=== PATIENT | male | born 1960 | race Caucasian/White ===

== ENCOUNTER → 2023-10-15 07:02 | Outpatient (REF) | payer BC, SELFPAY ==
[2023-10-15 09:45] LABS: ALT (SGPT) 42 U/L (0-50); AST (SGOT) 40 U/L (17-59); Albumin 4.4 g/dl (3.5-5.0); Alkaline Phosphatase 68 U/L (38-126); Blood Urea Nitrogen 21 mg/dl (9-20); Calcium 9.4 mg/dl (8.4-10.2); Carbon Dioxide 26 mmol/L (22-30); Chloride 105 mmol/L (98-107); Glucose 112 mg/dl (70-99); HDL Cholesterol 47 mg/dl; LDL Cholesterol, Calculated 126 mg/dl; Potassium 4.3 mmol/L (3.5-5.1); Sodium 137 mmol/L (135-145); Total Bilirubin 1.2 mg/dl (0.2-1.3); Total Cholesterol 212 mg/dl (50-199); Total Protein 7.3 g/dl (6.3-8.2); Triglyceride 195 mg/dl (10-149); Very Low Density Lipoprotein 39 mg/dl (0-30); eGFR > 60.00
[2023-10-15 10:02] LABS: Free T4 0.82 ng/dl (0.78-2.19)
[2023-10-15 10:15] LABS: TSH 4.04 uIU/ml (0.47-4.68)
[2023-10-15 10:54] LABS: Glycohemoglobin (HgbA1c) 5.6 % (4.0-5.6)
[2023-10-17 22:49] LABS: Anti-Xa Qualitative Interp Not Performed (Not Present); Anticoagulant Med Neutralizati Not Performed (Not Performed); Hexagonal Phospholipid Confirm Not Performed s (<=7.9); Neutralized PTT-LA Ratio Not Performed (<=1.20); Neutralized dRVTT Screen Ratio Not Performed (<=1.20); PTT-LA Ratio 0.94 (<=1.20); Prothrombin Time 13.7 s (12.0-15.5); Thrombin Time Not Performed s (<=19.5); dRVTT 1.1 Mix Ratio Not Performed (<=1.20); dRVTT Confirmation Ratio Not Performed (<=1.20); dRVTT Screen Ratio 0.99 (<=1.20)
[2023-10-21 03:28] LABS: Beta-2-Glycoprotein I Ab. IgG <10 SGU (<=20); Beta-2-Glycoprotein I Ab. IgM <10 SMU (<=20)
[2023-10-21 09:55] LABS: Cardiolipin IgA Antibody <10 APL (<=11); Cardiolipin IgM Antibody <10 MPL (<=12); Cardiolipin Igg Antibody <10 GPL (<=14)
== END ==
LOC: HWLAB 07:02
PROVIDERS: ATTENDING PHYSICIAN Physician Assistant Medical
DX: Z86.718 Personal history of other venous thrombosis and embolism (principal); Z82.49 Family history of ischemic heart disease and other diseases of the circulatory system; E78.2 Mixed hyperlipidemia; E03.9 Hypothyroidism, unspecified; R73.9 Hyperglycemia, unspecified; Z68.32 Body mass index [BMI] 32.0-32.9, adult
CPT/HCPCS: 36415; 80053; 80061; 83036; 84439; 84443; 85610; 85613; 85730; 86146; 86147

== ENCOUNTER 2024-08-02 17:01 | Emergency (ER) | payer BC, SELFPAY ==
[2024-08-02 17:05] VITALS: BP 126/77
[2024-08-02 18:38] VITALS: BMI 31.0
--- NOTE | 2024-08-02 18:48 | ED.GENMED ---
History of Present Illness
General
Chief Complaint: DVT/Possible Blood Clot
Source: patient
Exam Limitations: none
Time Seen by Provider: 08/02/24 17:41
Nursing documentation reviewed up to this point in time: agreed with
History of Present Illness
History of Present Illness:
63-year-old male presenting to the emergency department today with concerns of a red streak to his left thigh over the past few days. Concerned this could be DVT as he has had 1 in the past. Denies additional symptoms no chest pain shortness of
breath no recent trauma surgery or immobilization
Past History
Past History
ED Past Medical History: Hypothyroidism and Other (Lupus)
ED Past Surgical History: None
Social History
Tobacco: Non-smoker
Alcohol: Occasional
Personal:
Living: with family
Employment: Employed
Review of Systems
Review of Systems
Allergies reviewed?: Yes
All Other Systems: ROS reviewed and negative except as documented in HPI and ROS
Phy Exam
Physical Exam
Physical Exam:
GENERAL: Alert , in no apparent distress
EYE: pupils equal and reactive
NECK: Supple, no significant adenopathy.
ENT: o/p clr, mmm.
CARDIAC: Regular rate and rhythm .
LUNGS: Clear breath sounds bilaterally, no acute respiratory distress, no wheezes/rales/rhonchi
ABDOMEN: Soft, without focal tenderness, no r/g, no cvat
NEUROLOGICAL: Alert and oriented, no focal neuro deficits
SKIN: Faint red streak to the left anterior thigh no tenderness normal distal skin examination and pulses. Warm and dry, skin intact.
MUSCULOSKELETAL: No edema, well perfused.
PSYCH: Normal and appropriate interaction.
Course
Orders/Labs/Results
Orders:
Orders
08/02/24 17:23
Periph Venous Lwr Ext Left US [US Periph Venous LOWER Ext LT] Urgent
Comment:
Reason For Exam: pain, swelling
Vital Signs
Initial and Last Documented VS:
Initial Vital Signs
Temp Pulse Resp BP Pulse Ox
97.7 F 71 16 126/77 98
08/02/24 17:05 08/02/24 17:05 08/02/24 17:05 08/02/24 17:05 08/02/24 17:05
Last Documented Vital Signs
Temp Pulse Resp BP Pulse Ox
97.7 F 71 16 126/77 98
08/02/24 17:05 08/02/24 17:05 08/02/24 17:05 08/02/24 17:05 08/02/24 17:05
MDM/Problems Addressed
MDM/Problems Addressed:
63-year-old male presenting with concerns of light red streak to his left thigh. Had a previous DVT and was concerned this could be a clot. Does not appear consistent with cellulitis on examination very subtle on exam could be related to minor
injury. Ultrasound without evidence of DVT. Advised for close outpatient follow-up for any progression. Return precautions given.
*Critical Care Note
Total Time (30-74mins, 75-104mins- exclusive of procedures): Not Applicable
ED Attending Note
-
Portions of this chart may have been created with voice recognition software.� Occasional wrong word or��sound alike� substitutions may have occurred due to the inherent limitations of voice recognition software.
Discharge Plan
Departure
Patient Disposition: Home (Routine Discharge)
Date of Disposition: 08/02/24
Time of Disposition: 18:50
Patient with high blood pressure during this ER visit?: No
Condition: Good
Covid-19: Not Applicable
Discharge Problem:
Acute thigh pain
Prescriptions:
No Action
levothyroxine 75 MCG tablet
75 mcg PO DAILY
Referrals:
PRIVATE,PHYSICIAN [Family Provider] -
Activity Restrictions/Additional Instructions:
You came to the emergency department today with concerns of streaking to your left thigh. Fortunately your ultrasound was normal. Please follow closely with the primary care doctor next week or so if any symptoms persist. Return for any
worsening, new or concerning symptoms.
Interventions
Interventions:
*Risk Screen - Suicide Last Done: 08/02/24 17:05
*General Assessment Last Done: 08/02/24 17:05
*Neglect/Abuse Screening Last Done: 08/02/24 17:05
*ED COVID-19 Vaccine History Last Done: 08/02/24 18:38
Discharge Date and Time
Print Language: [id number]
== END 2024-08-02 19:01 | disposition home or self-care (01) ==
LOC: EMR 17:01
PROVIDERS: EMERGENCY PHYSICIAN Emergency Medicine
DX: M79.652 Pain in left thigh (principal); E03.9 Hypothyroidism, unspecified; Z86.718 Personal history of other venous thrombosis and embolism; M32.9 Systemic lupus erythematosus, unspecified
CPT/HCPCS: 99284; 93971

== ENCOUNTER → 2024-11-17 07:31 | Outpatient (REF) | payer BC, SELFPAY ==
[2024-11-17 09:57] LABS: % Basophils 0.5 % (0-2); % Eosinophils 2.9 % (0-6); % Immature Granulocytes 0.2 % (0-0.5); % Lymphocytes 24.4 % (20.5-51.1); Absolute Eosinophils 0.2 10^3/uL (0-0.7); Absolute Lymphocytes 1.4 10^3/uL (1.2-3.4); Absolute Monocytes 0.6 10^3/uL (0.1-0.6); Absolute Neutrophils 3.6 10^3/uL (1.4-6.5); Hematocrit 44.4 % (39.0-52.0); Hemoglobin 15.6 g/dL (13.0-18.0); Mean Corp Hgb Conc. 35.1 g/dL (33.0-37.0); Mean Corpuscular Volume 88.1 fL (80.0-94.0); Mean Platelet Volume 9.1 fL (7.4-10.4); Nucleated Red Blood Cells % 0 % (-); Platelet Count 206 10^3/uL (130-400); Red Blood Cell Count 5.04 10^6/uL (4.70-6.10); Red Cell Dist. Width 11.9 % (11.5-14.5); White Blood Cell Count 5.8 10^3/uL (4.8-10.8)
[2024-11-17 10:15] LABS: Urine Albumin Negative (Neg - Trace); Urine Bilirubin Negative (Negative); Urine Character Clear (Clear); Urine Color Yellow; Urine Glucose Negative (Negative); Urine Ketone Negative (Negative); Urine Leukocyte Negative (Negative); Urine Nitrite Negative (Negative); Urine Occult Blood Negative (Negative); Urine Urobilinogen Negative (Neg - 1+)
[2024-11-17 10:16] LABS: Erythrocyte Sed Rate 1 mm/hour (0-20)
[2024-11-17 13:44] LABS: ALT (SGPT) 43 U/L (0-50); AST (SGOT) 34 U/L (17-59); Albumin 4.4 g/dl (3.5-5.0); Alkaline Phosphatase 69 U/L (38-126); Blood Urea Nitrogen 17 mg/dl (9-20); Calcium 9.4 mg/dl (8.4-10.2); Carbon Dioxide 26 mmol/L (22-30); Chloride 106 mmol/L (98-107); Glucose 116 mg/dl (70-99); HDL Cholesterol 41 mg/dl; LDL Cholesterol, Calculated 129 mg/dl; Potassium 4.7 mmol/L (3.5-5.1); Sodium 142 mmol/L (135-145); Total Bilirubin 1.1 mg/dl (0.2-1.3); Total Cholesterol 203 mg/dl (50-199); Triglyceride 167 mg/dl (10-149); Very Low Density Lipoprotein 33 mg/dl (0-30); eGFR > 60.00
[2024-11-17 13:59] LABS: Free T4 1.07 ng/dl (0.78-2.19)
[2024-11-17 14:13] LABS: TSH 3.21 uIU/ml (0.47-4.68)
[2024-11-19 00:39] LABS: ANA, IgG Reflex to HEp-2 None Detected (None Detected)
[2024-11-19 14:55] LABS: ds-DNA Ab, IgG Reflex To Titer 4 IU (0-24)
== END ==
LOC: RCS 07:31
PROVIDERS: ATTENDING PHYSICIAN Physician Assistant Medical; FAMILY PHYSICIAN Family Medicine
DX: E78.2 Mixed hyperlipidemia (principal); Z82.49 Family history of ischemic heart disease and other diseases of the circulatory system; R06.02 Shortness of breath; Z00.00 Encounter for general adult medical examination without abnormal findings; Z68.32 Body mass index [BMI] 32.0-32.9, adult; E03.9 Hypothyroidism, unspecified; L93.0 Discoid lupus erythematosus; Z86.718 Personal history of other venous thrombosis and embolism
CPT/HCPCS: 93017; 36415; 80053; 80061; 81003; 84439; 84443; 85025; 85652; 86038; 86225; 86430